=== PATIENT | male | born 2000 | race Caucasian/White ===

== ENCOUNTER 2020-09-18 01:08 | Emergency (ER) | payer OTHER ==
[2020-09-18] MEDS ORDERED: Lorazepam 2 MG/ML VIAL ONE (01:34)
[2020-09-18 01:45] LABS: #Monocytes 0.6 10x3/uL (0.0-1.1); #Neutrophils 5.3 10x3/uL (1.5-8.4); %Basophils 0.5 % (0.0-2.0); %Eosinophils 0.4 % (0.0-6.0); %Lymphocytes 23.9 % (18.0-47.0); %Monocytes 7.3 % (0.0-10.0); %Neutrophils 67.5 % (40.0-75.0); Acetaminophen Less than 6.0 mcg/mL (10.0-30.0); Alcohol Less than 10 mg/dL (Less than 10); Hemoglobin 15.4 g/dL (13.5-17.5); Mean Corpuscular HGB CONC 35.1 g/dL (32.0-36.0); Mean Corpuscular Hemoglobin 27.4 pg (27.0-33.0); Mean Platelet Volume 8.9 fl (7.4-10.4); Platelet Count 341 10x3/uL (150-450); RBC Distribution Width 14.6 % (11.5-14.5); Red Blood Cell (RBC) Count 5.63 10x6/uL (4.32-5.72); Salicylate Less than 8.0 mg/dL (15.0-30.0); White Blood Cell (WBC) Count 7.8 10x3/uL (3.5-10.5)
[2020-09-18 01:47] LABS: ALT (SGPT) 17 U/L (8-55); AST (SGOT) 17 U/L (5-34); Albumin 4.8 g/dL (3.5-5.0); Alkaline Phosphatase 50 U/L (50-130); Anion Gap 16 mmol/L (10-20); BUN (Urea Nitrogen) 11 mg/dL (8.9-20.6); Bilirubin, Total 0.5 mg/dL (0.2-1.2); CK (CPK) 124 U/L (30-200); Calc. Creatinine Clearance 0 mL/min (70-130); Calcium 9.3 mg/dL (7.8-10.44); Carbon Dioxide 24 mmol/L (22-29); Chloride 102 mmol/L (98-107); Globulin 3.3 g/dL (2.4-3.5); Glucose 169 mg/dL (70-105); Lipase 22 U/L (8-78); Potassium 3.8 mmol/L (3.5-5.1); Protein, Total 8.1 g/dL (6.0-8.3); Sodium 138 mmol/L (136-145)
[2020-09-18 02:04] LABS: Free T4 (Free Thyroxine) 1.29 ng/dL (0.70-1.48); Thyroid Stimulating Hormone 1.8409 uIU/mL (0.35-4.94)
== END 2020-09-18 03:00 | disposition home or self-care (01) ==
LOC: CSHERS 01:08
DX: R07.89 Other chest pain (principal); T43.621A Poisoning by amphetamines, accidental (unintentional), initial encounter; R00.0 Tachycardia, unspecified
CPT/HCPCS: 71045; 80053; 80307; 82550; 83690; 84439; 84443; 84484; 85025; 85379; 93005; 93010; 96374; J2060